=== PATIENT | female | born 1995 | race Two or more races ===

== ENCOUNTER 2018-11-06 11:40 | Inpatient (IN) | payer OTHER ==
[2018-11-06] MEDS ORDERED: OXYTOCIN 30 UNITS/LR 500 ML IV ×2 (12:30→19:30)
[2018-11-06] MEDS ORDERED: MISOPROSTOL 200 MCG TAB PR ×2 (12:30→19:30)
[2018-11-06] MEDS ORDERED: CARBOPROST 250 MCG INJ IM ×2 (12:30→19:30)
[2018-11-06 13:19] LABS: ADD MAN DIFF? NO
[2018-11-06 13:23] LABS: BASOPHILS % 0.5 % (0.0-2.0); EOSINOPHILS # 0.1 10^3/ul (0.0-0.5); EOSINOPHILS % 1.3 % (0.0-7.0); HEMATOCRIT 33.9 % (37.0-47.0); HEMOGLOBIN 11.1 g/dl (12.0-16.0); LYMPHOCYTES # 1.5 10^3/ul (0.8-2.9); LYMPHOCYTES % 16.5 % (15.0-51.0); MEAN CORPUSCULAR HEMOGLOBIN 28.4 pg (29.0-33.0); MEAN CORPUSCULAR HGB CONC 32.7 g/dl (32.0-37.0); MEAN CORPUSCULAR VOLUME 86.7 fl (82.0-101.0); MONOCYTE # 0.8 10^3/ul (0.3-0.9); NEUTROPHIL # 6.3 10^3/ul (1.6-7.5); NEUTROPHILS % 71.8 % (39.0-77.0); PLATELET COUNT 169 10^3/UL (140-415); RED BLOOD COUNT 3.91 10^6/ul (4.20-5.40); RED CELL DISTRIBUTION WIDTH 17.9 % (11.5-14.5)
[2018-11-06 13:23] LABS: WHITE BLOOD COUNT 8.8 10^3/ul (4.8-10.8)
[2018-11-06 13:41] LABS: INR 0.92; PROTIME 12.5 Sec (11.9-14.9)
[2018-11-06 13:42] LABS: PARTIAL THROMBOPLASTIN TIME 30.3 Sec (23.0-35.0)
[2018-11-06 14:46] LABS: HEPATITIS B SURFACE ANTIGEN NEGATIVE (NEGATIVE)
[2018-11-06 15:25] LABS: RAPID PLASMA REAGIN NONREACTIVE (NR)
[2018-11-06 15:45] LABS: AMPHETAMINE/METHAMPHETAMINE Negative (NEGATIVE); BARBITURATES Negative (NEGATIVE); BENZODIAZEPINES Negative (NEGATIVE); CANNABINOIDS Negative (NEGATIVE); COCAINE Negative (NEGATIVE); OPIATES Negative (NEGATIVE)
[2018-11-06] MEDS: ONDANSETRON 4 MG INJ IV (16:19)
[2018-11-06] MEDS: METOCLOPRAMIDE 10 MG INJ IV (16:19)
[2018-11-06] MEDS: FAMOTIDINE 20 MG INJ IV (16:19)
[2018-11-06] MEDS: LACTATED RINGER'S 1,000 ML IV ×3 (16:32→19:01)
[2018-11-06] MEDS ORDERED: morphine SULFATE/PF (10 MG/10 ML) INJ (16:54)
[2018-11-06] MEDS ORDERED: OXYTOCIN 10 UNIT INJ (16:54)
[2018-11-06] MEDS ORDERED: BUPIVACAINE 0.75%/DEXT (SPINAL) 2 ML INJ (16:58)
[2018-11-06] MEDS ORDERED: FENTAnyl 50 MCG/ML VIAL IV ×2 (17:00)
[2018-11-06] MEDS ORDERED: HYDROmorphONE 0.5 MG/0.5 ML SYG IV (17:00)
[2018-11-06] MEDS ORDERED: DIPHENHYDRAMINE 50 MG INJ IV (17:00)
[2018-11-06] MEDS ORDERED: NALOXONE (0.4 MG/ML) INJ IV (17:00)
[2018-11-06] MEDS ORDERED: KETOROLAC 30 MG INJ IV (17:00)
[2018-11-06] MEDS ORDERED: HYDROmorphONE 1 MG/5 ML IV SYRINGE IV ×3 (17:00)
[2018-11-06] MEDS ORDERED: ZOLPIDEM 5 MG TAB PO (17:00)
[2018-11-06] MEDS ORDERED: ONDANSETRON 4 MG INJ IV ×2 (17:00)
[2018-11-06] MEDS ORDERED: METHYLERGONOVINE 0.2 MG TAB PO (19:30)
[2018-11-06] MEDS ORDERED: METHYLERGONOVINE 0.2 MG INJ IM (19:30)
[2018-11-06] MEDS: HYDROmorphONE 0.5 MG/0.5 ML SYG IV (19:43)
[2018-11-06] MEDS: CEFAZOLIN 2 GM/50 ML (PMX) 50 ML IVPB (19:56)
[2018-11-06] MEDS: OXYTOCIN 30 UNITS/LR 500 ML IV ×2 (19:59→23:39)
[2018-11-06] MEDS: SENNA/DOCUSATE NA (8.6MG/50MG) TAB PO (21:00)
[2018-11-06] MEDS: DIPHENHYDRAMINE 50 MG INJ IV (22:32)
[2018-11-07] MEDS: KETOROLAC 30 MG INJ IV (03:30)
[2018-11-07] MEDS: METHYLERGONOVINE 0.2 MG INJ IM (03:31)
[2018-11-07] MEDS: LACTATED RINGER'S 1,000 ML IV ×3 (04:24→20:24)
[2018-11-07 08:26] LABS: ADD MAN DIFF? NO
[2018-11-07 08:27] LABS: BASOPHILS % 0.5 % (0.0-2.0); EOSINOPHILS # 0.1 10^3/ul (0.0-0.5); HEMATOCRIT 34.2 % (37.0-47.0); HEMOGLOBIN 11.1 g/dl (12.0-16.0); LYMPHOCYTES % 11.8 % (15.0-51.0); MEAN CORPUSCULAR HEMOGLOBIN 28.5 pg (29.0-33.0); MEAN CORPUSCULAR HGB CONC 32.5 g/dl (32.0-37.0); MEAN CORPUSCULAR VOLUME 87.7 fl (82.0-101.0); MEAN PLATELET VOLUME 11.9 fl (7.4-10.4); MONOCYTE # 0.6 10^3/ul (0.3-0.9); MONOCYTES % 6.7 % (0.0-11.0); NEUTROPHIL # 6.5 10^3/ul (1.6-7.5); NEUTROPHILS % 79.3 % (39.0-77.0); PLATELET COUNT 130 10^3/UL (140-415); RED CELL DISTRIBUTION WIDTH 17.5 % (11.5-14.5)
[2018-11-07 08:27] LABS: WHITE BLOOD COUNT 8.2 10^3/ul (4.8-10.8)
[2018-11-07 09:02] LABS: ANION GAP 8 (5-13); BLOOD UREA NITROGEN 11 mg/dl (7-20); CALCIUM 8.8 mg/dl (8.4-10.2); CARBON DIOXIDE 24 mmol/L (21-31); CHLORIDE 102 mmol/L (97-110); CREATININE 0.63 mg/dl (0.44-1.00); Estimated GFR > 60 mL/min (>60); GLUCOSE 59 mg/dl (70-220); POTASSIUM 3.9 mmol/L (3.5-5.1); SODIUM 134 mmol/L (135-144)
[2018-11-07] MEDS: SENNA/DOCUSATE NA (8.6MG/50MG) TAB PO ×2 (09:03→21:20)
[2018-11-07] MEDS: HYDROCODONE/APAP (5/325) TAB PO (18:22)
[2018-11-07] MEDS: IBUPROFEN 800 MG TAB PO (21:25)
[2018-11-08] MEDS: HYDROCODONE/APAP (5/325) TAB PO ×3 (00:49→22:11)
[2018-11-08] MEDS: LACTATED RINGER'S 1,000 ML IV (04:24)
[2018-11-08] MEDS: IBUPROFEN 800 MG TAB PO ×2 (05:54→14:47)
[2018-11-08 06:48] LABS: ADD MAN DIFF? NO
[2018-11-08 06:52] LABS: WHITE BLOOD COUNT 10.3 10^3/ul (4.8-10.8)
[2018-11-08 06:52] LABS: BASOPHILS % 0.2 % (0.0-2.0); EOSINOPHILS # 0.1 10^3/ul (0.0-0.5); EOSINOPHILS % 0.9 % (0.0-7.0); HEMATOCRIT 29.5 % (37.0-47.0); HEMOGLOBIN 9.6 g/dl (12.0-16.0); LYMPHOCYTES % 9.3 % (15.0-51.0); MEAN CORPUSCULAR HEMOGLOBIN 28.9 pg (29.0-33.0); MEAN CORPUSCULAR HGB CONC 32.5 g/dl (32.0-37.0); MEAN CORPUSCULAR VOLUME 88.9 fl (82.0-101.0); MEAN PLATELET VOLUME 11.9 fl (7.4-10.4); MONOCYTE # 0.8 10^3/ul (0.3-0.9); MONOCYTES % 7.3 % (0.0-11.0); NEUTROPHIL # 8.4 10^3/ul (1.6-7.5); NEUTROPHILS % 81.8 % (39.0-77.0); PLATELET COUNT 140 10^3/UL (140-415); RED BLOOD COUNT 3.32 10^6/ul (4.20-5.40); RED CELL DISTRIBUTION WIDTH 17.5 % (11.5-14.5)
[2018-11-08] MEDS: SENNA/DOCUSATE NA (8.6MG/50MG) TAB PO ×2 (08:31→21:53)
[2018-11-08] MEDS: MAGNESIUM HYDROXIDE 30ML CUP PO ×2 (11:21→21:52)
[2018-11-08] MEDS: BISACODYL 10 MG SUPP PR (11:27)
[2018-11-08] MEDS: LANOLIN HPA 1 PKT TOP (15:39)
[2018-11-09] MEDS: IBUPROFEN 800 MG TAB PO (00:08)
[2018-11-09] MEDS: HYDROCODONE/APAP (5/325) TAB PO (05:58)
[2018-11-09 07:44] LABS: ADD MAN DIFF? NO
[2018-11-09 07:56] LABS: WHITE BLOOD COUNT 7.1 10^3/ul (4.8-10.8)
[2018-11-09 07:56] LABS: BASOPHILS % 0.1 % (0.0-2.0); EOSINOPHILS # 0.1 10^3/ul (0.0-0.5); HEMATOCRIT 27.2 % (37.0-47.0); HEMOGLOBIN 8.9 g/dl (12.0-16.0); LYMPHOCYTES % 13.7 % (15.0-51.0); MEAN CORPUSCULAR HEMOGLOBIN 29.4 pg (29.0-33.0); MEAN CORPUSCULAR HGB CONC 32.7 g/dl (32.0-37.0); MEAN CORPUSCULAR VOLUME 89.8 fl (82.0-101.0); MEAN PLATELET VOLUME 12.8 fl (7.4-10.4); MONOCYTE # 0.7 10^3/ul (0.3-0.9); MONOCYTES % 9.4 % (0.0-11.0); NEUTROPHIL # 5.4 10^3/ul (1.6-7.5); NEUTROPHILS % 75.1 % (39.0-77.0); PLATELET COUNT 154 10^3/UL (140-415); RED BLOOD COUNT 3.03 10^6/ul (4.20-5.40); RED CELL DISTRIBUTION WIDTH 17.3 % (11.5-14.5)
[2018-11-09] MEDS: MEASLES,MUMPS,RUBELLA VACCINE INJ SC* (09:00)
[2018-11-09] MEDS: MAGNESIUM HYDROXIDE 30ML CUP PO (09:34)
[2018-11-09] MEDS: DIPHTH/TET/ACEL PERTUSS (ADULT) 0.5 ML VIAL IM* (09:35)
[2018-11-09] MEDS: SENNA/DOCUSATE NA (8.6MG/50MG) TAB PO (09:35)
== END 2018-11-09 12:20 | disposition home or self-care (01) | DRG 788 ==
LOC: OBT 11:40 → L-D 11:40 → OBT 12:32 → L-D 12:20 → PP1 21:48
PROVIDERS: Obstetrics & Gynecology
PROC: 10D00Z1 Extraction of Products of Conception, Low, Open Approach (ICD-10-PCS; principal; 2018-11-06 15:30)
PROC: 0DNW0ZZ Release Peritoneum, Open Approach (ICD-10-PCS; 2018-11-06 15:30)
DX: O34.211 Maternal care for low transverse scar from previous cesarean delivery (principal); O99.89 Other specified diseases and conditions complicating pregnancy, childbirth and the puerperium; N73.6 Female pelvic peritoneal adhesions (postinfective); O99.02 Anemia complicating childbirth; D50.9 Iron deficiency anemia, unspecified; Z3A.38 38 weeks gestation of pregnancy; Z37.0 Single live birth
CPT/HCPCS: 80048; 80307; 85025; 85610; 85730; 86592; 86850; 86870; 86900; 86901; 86902; 86920; 87340; 88305; 90715; 99464